=== PATIENT | male | born 1995 | race Caucasian/White ===

== ENCOUNTER 2017-09-04 20:08 | Emergency (ER) | payer OTHER ==
[2017-09-04 20:17] VITALS: TEMP 98.4; BMI 28.7
--- NOTE | 2017-09-04 20:17 | PDOC ---
Rapid Medical Evaluation Time Seen by Provider: 09/04/17 20:16 Medical Evaluation: Allergies Allergy/AdvReac Type Severity Reaction Status Date / Time No Known Allergies Allergy Verified 05/09/16 11:50 09/04/17 20:16 I have performed a brief in-person evaluation of this patient. The patient presents with a chief complaint of: left abd/flank pain, denies, N/V /D/urinary symptoms Pertinent physical exam findings: L CVA tenderness I have ordered the following: ua, ucx The patient will proceed to the ED for further evaluation. Discharge Disposition - Diagnosis Left flank pain - Referrals Referrals: Kenna Cameron MD [Primary Care Provider] - - Patient Instructions - Post Discharge Activity
[2017-09-04 20:39] LABS: URINE APPEARANCE SLCLOUDY; URINE BILIRUBIN NEGATIVE (<2.0 mg/dL); URINE BLOOD NEGATIVE (NEGATIVE); URINE COLOR YELLOW; URINE GLUCOSE (UA) NEGATIVE (NEGATIVE); URINE KETONE NEGATIVE (NEGATIVE); URINE LEUK ESTERASE NEGATIVE (NEGATIVE); URINE NITRITE NEGATIVE (NEGATIVE); URINE PROTEIN NEGATIVE (NEGATIVE); URINE UROBILINOGEN NEGATIVE mg/dL (0.2-1.0)
[2017-09-04] MEDS ORDERED: SODIUM CHLORIDE 1,000 ML IV STA (21:02)
[2017-09-04 21:21] LABS: BASO % 1.5 % (0-2.0); EOS % 1.2 % (0-4.5); HEMATOCRIT 41.6 % (35.4-49); HEMOGLOBIN 14.5 GM/dL (11.7-16.9); LYMPH % 36.3 % (8-40); MCH 30.7 pg (25.7-33.7); MCHC 34.8 g/dl (32.0-35.9); MEAN CELL VOLUME 88.2 fl (80-96); MEAN PLT VOLUME 7.7 fl (7.5-11.1); MONO % 7.7 % (3.8-10.2); NEUT % 53.3 % (42.8-82.8); PLATELET COUNT 293 K/MM3 (134-434); RBC 4.71 M/mm3 (4.00-5.60); RDW 12.8 % (11.9-15.9); WHITE BLOOD COUNT 7.2 K/mm3 (4.0-10.0)
--- NOTE | 2017-09-04 21:50 | PDOC ---
History of Present Illness - General History Source: Patient Exam Limitations: No Limitations - History of Present Illness Travel History: No Initial Comments: 09/04/17 21:42 Best Contact: PMD: Dr. Martino Pmhx: N/A Pshx: N/A Allergies: NKDA 22-year-old male presents to the ER complaining of left-sided flank pain 3 days. Pain is described as 8/10 intermittent wavelike sharp discomfort radiating to the left groin without nausea/vomiting, fever/chills, chest pain, shortness of breath, urinary symptoms: Frequency/urgency/hesitancy, hematuria. <Gregory Field - Last Filed: 09/04/17 23:45> <Gustavo Paula - Last Filed: 09/07/17 17:14> - General Chief Complaint: Pain Stated Complaint: LEFT SIDE PAIN Time Seen by Provider: 09/04/17 20:16 Past History - Past Medical History COPD: No - Immunization History Immunization Up to Date: Yes - Suicide/Smoking/Psychosocial Hx Smoking Status: No Smoking History: Never smoked Have you smoked in the past 12 months: No Number of Cigarettes Smoked Daily: 0 Hx Alcohol Use: No Drug/Substance Use Hx: No Substance Use Type: None Hx Substance Use Treatment: No <Gregory Field - Last Filed: 09/04/17 23:45> <Gustavo Paula - Last Filed: 09/07/17 17:14> - Past Medical History Allergies/Adverse Reactions: Allergies Allergy/AdvReac Type Severity Reaction Status Date / Time No Known Allergies Allergy Verified 09/04/17 20:23 Home Medications: Ambulatory Orders Levofloxacin [Levaquin] 500 mg PO DAILY #14 tablet 09/04/17 metroNIDAZOLE [Flagyl -] 500 mg PO DAILY #14 tablet 09/04/17 Review of Systems - Review of Systems Able to Perform ROS?: Yes Comments:: 09/04/17 21:50 CONSTITUTIONAL: Absent: fever, chills, diaphoresis, generalized weakness, malaise, loss of appetite HEENT: Absent: rhinorrhea, nasal congestion, throat pain, throat swelling, difficulty swallowing, mouth swelling, ear pain, eye pain, visual Changes CARDIOVASCULAR: Absent: chest pain, loss of consciousness, palpitations, irregular heart rate, peripheral edema RESPIRATORY: Absent: cough, shortness of breath, dyspnea with exertion, orthopnea, wheezing, stridor, hemoptysis GASTROINTESTINAL: Absent: abdominal pain, abdominal distension, nausea, vomiting, diarrhea, constipation, melena, hematochezia GENITOURINARY: +left flank pain Absent: dysuria, frequency, urgency, hesitancy, hematuria, genital pain MUSCULOSKELETAL: Absent: myalgia, arthralgia, joint swelling SKIN: Absent: rash, itching, pallor HEMATOLOGIC/IMMUNOLOGIC: Absent: easy bleeding, easy bruising, lymphadenopathy, frequent infections ENDOCRINE: Absent: unexplained weight gain, unexplained weight loss, heat intolerance, cold intolerance NEUROLOGIC: Absent: headache, focal weakness or paresthesias, dizziness, unsteady gait, seizure, mental status changes, bladder or bowel incontinence PSYCHIATRIC: Absent: anxiety, depression, suicidal or homicidal ideation, hallucinations. Is the patient limited Canadian proficient: No <Alexx Fieldui - Last Filed: 09/04/17 23:45> *Physical Exam - Vital Signs Last Vital Signs Temp Pulse Resp BP Pulse Ox 98.4 F 82 18 132/86 100 09/04/17 20:16 09/04/17 20:16 09/04/17 20:16 09/04/17 20:16 09/04/17 20:16 - Physical Exam Comments: 09/04/17 21:50 GENERAL: Well developed, well nourished. Awake and alert. No acute distress. HEENT: Normocephalic, atraumatic. PERRLA, EOMI. No conjunctival pallor. Sclera are non- icteric. Moist mucous membranes. Oropharynx is clear. NECK: Supple. Full ROM. No JVD. Carotid pulses 2+ and symmetric, without bruits. No thyromegaly. No lymphadenopathy. CARDIOVASCULAR: Regular rate and rhythm. No murmurs, rubs, or gallops. Distal pulses are 2+ and symmetric. PULMONARY: No evidence of respiratory distress. Lungs clear to auscultation bilaterally. No wheezing, rales or rhonchi. ABDOMINAL: +Left CVAT Soft. Non-tender. Non-distended. No rebound or guarding. No organomegaly. Normoactive bowel sounds. MUSCULOSKELETAL Normal range of motion at all joints. No bony deformities or tenderness. EXTREMITIES: No cyanosis. No clubbing. No edema. No calf tenderness. SKIN: Warm and dry. Normal capillary refill. No rashes. No jaundice. NEUROLOGICAL: Alert, awake, appropriate. Cranial nerves 2-12 intact. No deficits to light touch and temperature in face, upper extremities and lower extremities. No motor deficits in the in face, upper extremities and lower extremities. Normoreflexic in the upper and lower extremities. Normal speech. Toes are down- going bilaterally. Gait is normal without ataxia. PSYCHIATRIC: Cooperative. Good eye contact. Appropriate mood and affect. <Gregory Field - Last Filed: 09/04/17 23:45> - Vital Signs Last Vital Signs Temp Pulse Resp BP Pulse Ox 98.4 F 82 18 132/86 100 09/04/17 20:16 09/04/17 20:16 09/04/17 20:16 09/04/17 20:16 09/04/17 20:16 <Gustavo Paula - Last Filed: 09/07/17 17:14> ED Treatment Course - LABORATORY CBC & Chemistry Diagram: 09/04/17 21:10 09/04/17 21:48 - ADDITIONAL ORDERS Additional order review: Laboratory Results 09/04/17 09/04/17 21:10 20:15 Sodium Cancelled Potassium Cancelled Chloride Cancelled Carbon Dioxide Cancelled Anion Gap Cancelled BUN Cancelled Creatinine Cancelled Creat Clearance w eGFR Cancelled Random Glucose Cancelled Calcium Cancelled Total Bilirubin Cancelled AST Cancelled ALT Cancelled Alkaline Phosphatase Cancelled Total Protein Cancelled Albumin Cancelled Urine Color Yellow Urine Appearance Slcloudy Urine pH 6.0 Ur Specific [place] 1.024 Urine Protein Negative Urine Glucose (UA) Negative Urine Ketones Negative Urine Blood Negative Urine Nitrite Negative Urine Bilirubin Negative Urine Urobilinogen Negative Ur Leukocyte Esterase Negative 09/04/17 21:10 RBC 4.71 MCV 88.2 MCHC 34.8 RDW 12.8 MPV 7.7 Neutrophils % 53.3 Lymphocytes % 36.3 Monocytes % 7.7 Eosinophils % 1.2 Basophils % 1.5 - RADIOLOGY Radiology Studies Ordered: Category Date Time Status ABDOMEN & PELVIS CT W/O CONTR [CT] Stat CT Scan 09/04/17 21:02 Taken Radiograph Interpretation: 09/04/17 23:29 CT abd/pelvis with po/iv contrast: CAT scan without contrast thousand and pelvis shows no evidence of hydroureteronephrosis, renal or ureteral stone bilaterally. Mild mesenteric straining around the junction of the distal descending and proximal sigmoid colon with questionable mild wall thickening which they cannot rule out mild colitis or acute diverticulitis. <Gregory Field - Last Filed: 09/04/17 23:45> - LABORATORY CBC & Chemistry Diagram: 09/04/17 21:10 09/04/17 21:48 - ADDITIONAL ORDERS Additional order review: 09/04/17 20:15 Urine Culture - Final Urine - Urine Clean Catch NO GROWTH OBTAINED 09/04/17 21:10 RBC 4.71 MCV 88.2 MCHC 34.8 RDW 12.8 MPV 7.7 Neutrophils % 53.3 Lymphocytes % 36.3 Monocytes % 7.7 Eosinophils % 1.2 Basophils % 1.5 - Medications Given in the ED: ED Medications Discontinued Medications Generic Name Dose Route Start Last Admin Trade Name Freq PRN Reason Stop Dose Admin Sodium Chloride 1,000 mls @ 1,000 mls/hr 09/04/17 21:02 09/04/17 21:27 Normal Saline - IV 09/04/17 22:01 1,000 mls/hr ASDIR STA Administration <Gustavo Paula - Last Filed: 09/07/17 17:14> Medical Decision Making - Medical Decision Making 09/04/17 23:44 22-year-old male complaining of left-sided flank pain radiating to left lower quadrant without fever, chills, nausea/vomiting. Blood work was normal. CAT scan without contrast thousand and pelvis shows no evidence of hydroureteronephrosis, renal or ureteral stone bilaterally. Mild mesenteric straining around the junction of the distal descending and proximal sigmoid colon with questionable mild wall thickening which they cannot rule out mild colitis or acute diverticulitis. <Gregory Field - Last Filed: 09/04/17 23:45> - Medical Decision Making The patient was seen and evaluated in conjunction with IAIN Field under my direct supervision, ancillary studies were reviewed. I agree with the plan as outlined by IAIN Field. <Gustavo Paula - Last Filed: 09/07/17 17:14> *DC/Admit/Observation/Transfer - Discharge Dispostion Admit: No <Gregory Field - Last Filed: 09/04/17 23:45> <Gustavo Paula - Last Filed: 09/07/17 17:14> Diagnosis at time of Disposition: Left flank pain - Discharge Dispostion Disposition: HOME Condition at time of disposition: Stable - Prescriptions Prescriptions: Levofloxacin [Levaquin] 500 mg PO DAILY #14 tablet metroNIDAZOLE [Flagyl -] 500 mg PO DAILY #14 tablet - Referrals Referrals: Kenna Cameron MD [Primary Care Provider] - - Patient Instructions Printed Discharge Instructions: DI for Flank Pain Additional Instructions: Follow up with your physician You were prescribed Levaquin and Flagyl but I would not start taking it until the pain is worse. Follow-up with the GI doctor within 2-3 days Return back to the ER for severe/persistent or worsening symptoms - Post Discharge Activity
[2017-09-04 22:44] LABS: ALBUMIN 4.1 g/dl (3.4-5.0); ANION GAP 6 (8-16); BILIRUBIN,TOTAL 0.4 mg/dL (0.2-1.0); BLOOD UREA NITROGEN 15 mg/dL (7-18); CALCIUM 8.7 mg/dL (8.5-10.1); CHLORIDE 107 mmol/L (98-107); CO2 27 mmol/L (21-32); CREATININE 0.8 mg/dL (0.7-1.3); GLUCOSE,RANDOM 93 mg/dL (74-106); POTASSIUM 3.6 mmol/L (3.5-5.1); SGOT/AST 27 U/L (15-37); SGPT/ALT 45 U/L (12-78); SODIUM 140 mmol/L (136-145); TOT PROT 7.6 g/dl (6.4-8.2)
[2017-09-04 22:45] LABS: ALK PHOS 95 U/L (45-117)
== END 2017-09-05 00:02 | disposition home or self-care (01) ==
LOC: JER 20:08
PROC: 3E0337Z Introduction of Electrolytic and Water Balance Substance into Peripheral Vein, Percutaneous Approach (ICD-10-PCS; principal; 2017-09-04)
DX: R10.32 Left lower quadrant pain (principal)
CPT/HCPCS: 36415; 74176-TC; 80053; 81003; 85025; 87086; 96360; 99281-25; J7030

== ENCOUNTER 2018-09-10 12:40 | Emergency (ER) | payer OTHER ==
[2018-09-10 12:48] VITALS: BP 130/73; PULSE 99; TEMP 100.4; BMI 20.9
[2018-09-10] MEDS ORDERED: IBUPROFEN 600 MG TABLET (FP) PO ONE ×2 (13:33→13:36)
--- NOTE | 2018-09-10 13:39 | PDOC ---
History of Present Illness - General Chief Complaint: Shortness of Breath Stated Complaint: S.O.B Time Seen by Provider: 09/10/18 13:26 History Source: Patient Exam Limitations: No Limitations - History of Present Illness Initial Comments: 09/10/18 15:11 Patient is here with complaints subacute onset of pain to his throat yesterday. States had fevers and chills and is feeling the same today. Has difficulty swallowing but able to tolerate fluids. Kids were sick with same last week Timing/Duration: reports: getting worse Severity: reports: moderate Associated Symptoms: reports: facial pain, fever/chills, nasal congestion, nasal drainage, sore throat Past History - Travel Traveled outside of the country in the last 30 days: No Close contact w/someone who was outside of country & ill: No - Past Medical History Allergies/Adverse Reactions: Allergies Allergy/AdvReac Type Severity Reaction Status Date / Time No Known Allergies Allergy Verified 09/10/18 12:46 Home Medications: Ambulatory Orders Azithromycin [Zithromax -] 250 mg PO UTDICT #6 tab 09/10/18 COPD: No - Immunization History Immunization Up to Date: Yes - Suicide/Smoking/Psychosocial Hx Smoking Status: No Smoking History: Never smoked Have you smoked in the past 12 months: No Number of Cigarettes Smoked Daily: 0 Information on smoking cessation initiated: No Hx Alcohol Use: No Drug/Substance Use Hx: No Substance Use Type: None Hx Substance Use Treatment: No Review of Systems - Review of Systems Able to Perform ROS?: Yes Is the patient limited Georgian proficient: Yes Constitutional: Yes: Symptoms Reported, See HPI, Fever, Malaise HEENTM: Yes: Symptoms Reported, See HPI, Nose Congestion, Throat Pain, Throat Swelling, Difficulty Swallowing Respiratory: Yes: Symptoms reported, See HPI, Cough Musculoskeletal: Yes: See HPI. No: Symptoms Reported All Other Systems: Reviewed and Negative *Physical Exam - Vital Signs Last Vital Signs Temp Pulse Resp BP Pulse Ox 100.4 F H 99 H 18 130/73 97 09/10/18 12:46 09/10/18 12:46 09/10/18 12:46 09/10/18 12:46 09/10/18 12:46 - Physical Exam General Appearance: Yes: Nourished, Appropriately Dressed, Apparent Distress, Mild Distress, Moderate Distress HEENT: positive: TMs Normal, Pharyngeal Erythema, Tonsillar Exudate, Tonsillar Erythema (beefy-red with white/chambers exudate), Rhinorrhea. negative: Normal ENT Inspection Neck: positive: Supple, Lymphadenopathy (R), Lymphadenopathy (L) Respiratory/Chest: positive: Lungs Clear, Normal Breath Sounds, Accessory Muscle Use. negative: Stridor, Wheezing Gastrointestinal/Abdominal: positive: Soft Musculoskeletal: positive: Normal Inspection Extremity: positive: Normal Capillary Refill, Normal Inspection Integumentary: positive: Dry, Warm, Pale Neurologic: positive: green building architect II-XII NML intact, Fully Oriented, Alert, Normal Mood/ Affect, Normal Response, Motor Strength 09/16 Progress Note - Progress Note Progress Note: All clinical evidence of strep pharyngitis, will treat with Z-David *DC/Admit/Observation/Transfer Diagnosis at time of Disposition: Pharyngitis Qualifiers: Pharyngitis/tonsillitis etiology: unspecified etiology Qualified Code(s): J02.9 - Acute pharyngitis, unspecified - Discharge Dispostion Disposition: HOME Condition at time of disposition: Stable Decision to Admit order: No - Prescriptions Prescriptions: Azithromycin [Zithromax -] 250 mg PO UTDICT #6 tab - Referrals Referrals: Kenna Cameron MD [Primary Care Provider] - - Patient Instructions Printed Discharge Instructions: DI for Pharyngitis/Tonsillopharyngitis -- Adult Additional Instructions: Rest, drink lots of fluids: Teas, water, soups Eat cold things: Ice cream, ice pops, ice chips Saltwater gargles Steamy showers/seem to face break up mucus Avoid contact with others until fevers and pain resolved Lots of handwashing and good hygiene, this is contagious Zithromax as directed until completed Tylenol or Motrin for fever and pain Followup with private physician in one to 2 days as needed if not improving Return to emergency department for worsened symptoms, fevers, dehydration - Post Discharge Activity Forms/Work/School Notes: Back to Work
== END 2018-09-10 13:44 | disposition home or self-care (01) ==
LOC: JERFT 12:40
DX: J02.9 Acute pharyngitis, unspecified (principal)
CPT/HCPCS: 99281-25

== ENCOUNTER 2018-10-12 21:53 | Emergency (ER) | payer OTHER | END 2018-10-13 02:00 | disposition home or self-care (01) | LOC: JER 10-13 02:00 → JERFT 21:53 ==

== ENCOUNTER 2020-09-14 12:39 | Emergency (ER) | payer BC, OTHER ==
[2020-09-14 13:02] VITALS: BP 132/81; PULSE 83; TEMP 98.1; BMI 29.9
== END 2020-09-14 15:19 | disposition home or self-care (01) ==
LOC: JERFT 12:39
DX: M72.2 Plantar fascial fibromatosis (principal)
CPT/HCPCS: 73630-TC-RT-FY; 99284-25

== ENCOUNTER 2021-09-20 10:11 | Emergency (ER) | payer SELFPAY ==
[2021-09-20 10:16] VITALS: BP 134/80; PULSE 88; TEMP 98.3; BMI 29.7
[2021-09-20] MEDS ORDERED: ACETAMINOPHEN 1000 MG/100 ML BAG IVPB ONE (10:49)
[2021-09-20] MEDS ORDERED: METHOCARBAMOL 500 MG TABLET PO ONE (10:49)
[2021-09-20] MEDS ORDERED: ACETAMINOPHEN INJECTION 100 ML IVPB ONE (10:52)
[2021-09-20] MEDS ORDERED: METHOCARBAMOL 500 MG TABLET ONE (10:52)
[2021-09-20 11:23] LABS: BASO % 0.5 % (0-2.0); EOS % 2.4 % (0-4.5); HEMATOCRIT 45.4 % (35.4-49); HEMOGLOBIN 15.4 GM/dL (11.7-16.9); LYMPH % 30.8 % (8-40); MCH 30.7 pg (25.7-33.7); MEAN CELL VOLUME 90.3 fl (80-96); MEAN PLT VOLUME 7.8 fl (7.5-11.1); MONO % 9.1 % (3.8-10.2); NEUT % 57.2 % (42.8-82.8); PLATELET COUNT 303 10^3/uL (134-434); RBC 5.02 M/mm3 (4.00-5.60); RDW 12.6 % (11.9-15.9); WHITE BLOOD COUNT 6.1 K/mm3 (4.0-10.0)
[2021-09-20 11:24] LABS: URINE APPEARANCE CLEAR; URINE BILIRUBIN NEGATIVE (NEGATIVE); URINE COLOR YELLOW; URINE GLUCOSE (UA) NEGATIVE (NEGATIVE); URINE KETONE NEGATIVE (NEGATIVE); URINE LEUK ESTERASE NEGATIVE (NEGATIVE); URINE NITRITE NEGATIVE (NEGATIVE); URINE PROTEIN NEGATIVE (NEGATIVE); URINE UROBILINOGEN 0.2 mg/dL (0.2-1.0)
[2021-09-20 11:51] LABS: CALCIUM 9.1 mg/dL (8.5-10.1)
[2021-09-20 11:52] LABS: ALBUMIN 4.1 g/dl (3.4-5.0); BLOOD UREA NITROGEN 12.4 mg/dL (7-18)
[2021-09-20 11:55] LABS: CREATININE 0.9 mg/dL (0.55-1.3)
[2021-09-20 11:57] LABS: BILIRUBIN,TOTAL 1.1 mg/dL (0.2-1); TOT PROT 7.8 g/dl (6.4-8.2)
[2021-09-20] MEDS ORDERED: morphine CARPU-JECT 4 MG/1 ML DISP.SYRIN IVPUSH ONE (12:21)
[2021-09-20] MEDS ORDERED: morphine SULFATE 4 MG/ML VIAL ONE (12:31)
[2021-09-20] MEDS ORDERED: KETOROLAC TROMETHAMINE 15 MG/ML VIAL IVPUSH ONE (13:56)
[2021-09-20] MEDS ORDERED: KETOROLAC TROMETHAMINE 15 MG/ML VIAL ONE (14:00)
== END 2021-09-20 14:07 | disposition home or self-care (01) ==
LOC: JER 10:11
PROC: 3E0333Z Introduction of Anti-inflammatory into Peripheral Vein, Percutaneous Approach (ICD-10-PCS; principal; 2021-09-20)
PROC: 3E0333Z Introduction of Anti-inflammatory into Peripheral Vein, Percutaneous Approach (ICD-10-PCS; 2021-09-20)
PROC: 3E033NZ Introduction of Analgesics, Hypnotics, Sedatives into Peripheral Vein, Percutaneous Approach (ICD-10-PCS; 2021-09-20)
DX: R10.9 Unspecified abdominal pain (principal)
CPT/HCPCS: 36415; 74176-TC; 80053; 81003; 85025; 87086; 93005; 93010; 99285-25